=== PATIENT | female | born 1970 | race Caucasian/White ===

== ENCOUNTER 2020-05-24 09:04 | Emergency (ER) | payer BC, SELFPAY ==
[2020-05-24 09:37] VITALS: BP 141/98; PULSE 87; RESP 19; TEMP 36.9; O2SAT 99; BMI 29.0
--- NOTE | 2020-05-24 09:43 | [facility].EDUTC ---
[facility] Disposition Clinical Impression: Encounter for laboratory testing for COVID-19 virus Disposition: Home, Self-Care Condition on Discharge: Good Instructions: Preventing the Spread of Coronavirus Discharge Instructions Additional Instructions: *Monitor Temp, Over the counter Motrin or Tylenol as directed/as needed Tylenol every 4 hours and Motrin every 6 hours (as long as your family doctor has told you that you can take it) for fever or pain. and straight to ER if unable to lower temp less than 101.0 after medication given *Warm salt water gargles may help to soothe the throat *Throat Lozenges *Warm fluids like tea with honey may help to soothe the throat *Sleep elevated *Humidifier/Vaporizer Follow up IMMEDIATELY for new or worsening symptoms or no Noticeable improvement over the next 48-72 hours. 911 for difficulty breathing or swallowing You was tested for today for COVID19 your test result should be back later this evening, you may call back later this evening to see if your test results are back and the result You was given a handout with instructions for Self Quarantine and Self isolation for while you wait on test results and what to do if they are positive Referrals: Michael Fontana [Primary Care Provider] - As needed Forms: Work/School Release Medical Decision Making - Allen Inquiry Pt receiving controlled substance: No Allen was queried for this patient: No Vital Signs: 05/24/20 09:37 Temperature 98.4 F Temperature Source Oral Pulse Rate [Right Brachial] 87 Respiratory Rate 19 Blood Pressure [Right Arm] 141/98 H Blood Pressure Mean [Right Arm] 112 Blood Pressure Source [Right Arm] Automatic Cuff Blood Pressure Position [Right Arm] Sitting 02 Sat by Pulse Oximetry 99 Oxygen Delivery Method Room Air Orders (Tests/Meds): ORDERS Category Date Time Status Covid-19 Nasal PCR ([facility]) Routine Lab 05/24/20 09:15 Received [facility] HPI - General Stated complaint: covid exposue Time Seen by Provider: 05/24/20 09:43 Mode of Arrival: Ambulatory Source of Information: Patient Limitations: No Limitations Description of Symptoms (Recalled from Triage Doc. by RN): PATIENT REQUESTING COVID TEST. C/O RUNNY NOSE AND SORE THROAT. STATES HER WAS POTENTIALLY EXPOSED LAST SATURDAY HEENT Symptoms (Recalled from RN notes): Yes Resp Symptoms (Recalled from RN notes): No Skin Symptoms (Recalled from RN notes): No MS Symptoms (Recalled from RN notes): No Functional Status (Recalled from RN notes): WNL - History of Present Illness Provider Complaint: Patient states that she has been around her who was exposed to coworker that tested positive for COVID states that she has been having sore throat and nasal drainage but that is typical for her this time of year but now concerned that she may have COVID and wants to get tested - Related Data Home Medications Medication Instructions Recorded Confirmed Metoprolol Succinate [Metoprolol 50 mg PO DAILY 05/24/20 05/24/20 Succinate 50mg Tablet*] lisinopriL [Lisinopril 40mg Tablet] 40 mg PO DAILY 05/24/20 05/24/20 Allergies Allergy/AdvReac Type Severity Reaction Status Date / Time Penicillins Allergy Verified 05/24/20 09:43 - Worker's Comp Is this a Worker's Comp case?: No [facility] History - Hepatitis A Screen Drug use history?: No High risk sexual behaviors?: No History of sexually transmitted infection?: No Currently employed?: No Childcare worker?: No Do you have indoor plumbing?: Yes Do you have electricity?: Yes Attestation statement:: This patient has been screened for Hepatitis A risk factors. I have reviewed the patient's past medical history: Yes - Social History Alcohol Intake: never Occupational Status: other ROS Obtained: Yes All systems reviewed & no additional complaints, Yes Systems reviewed as appropriate & no additional complaints - Constitutional Constitutional: Reports headache(s) - ENT Ears, No
[2020-05-24 09:49] VITALS: BP 141/98; PULSE 87; RESP 19; TEMP 36.9; O2SAT 99
== END 2020-05-24 09:54 | disposition home or self-care (01) ==
PROVIDERS: Emergency Provider Nurse Practitioner; PCP Family Medicine
DX: Z20.828 Contact with and (suspected) exposure to other viral communicable diseases (principal); I10 Essential (primary) hypertension; Z88.0 Allergy status to penicillin
CPT/HCPCS: 99201; U0003